=== PATIENT | female | born 1990 | race African-American/Black ===

== ENCOUNTER 2018-02-10 01:36 | Emergency (ER) | payer OTHER, MEDICAID ==
[~2018-02-10] VITALS: Ht 157.5 cm; Wt 49.9 kg
--- NOTE | 2018-02-10 01:38 | NUR ---
[facility] [employer] TO CHAIR [facility] EVALUATING PATIENT
--- NOTE | 2018-02-10 01:38 | NUR ---
YONNY ARAMBULA FOR PHYSICIAN ASSESSMENT BEFORE TRANSFER TO [facility]. PT HAS HX OF LUPS. PT DENIES N/V/D; SKIN IS PINK/WARM/DRY; AAOX4 WITH EVEN AND STEADY GAIT; LUNGS CLEAR BL; HR EVEN AND REGULAR; PT DENIES ANY FEVER, CP, SOB, OR COUGH AT THIS TIME; PATIENT STATES PAIN OF 0/10 AT THIS TIME; VSS; PATIENT POSITIONED FOR COMFORT; HOB ELEVATED; BEDRAILS UP X2; BED DOWN. ER MD MADE AWARE OF PT STATUS. CONTINUE TO MONITOR.
[2018-02-10 01:40] VITALS: BP 111/67
--- NOTE | 2018-02-10 01:44 | NUR ---
DR MELVIN AT CHAIRSIDE EVALUATING PT.
[2018-02-10 01:50] VITALS: BP 111/67
--- NOTE | 2018-02-10 01:50 | NUR ---
PATIENT [facility] [employer]. PATIENT EXAMINED BY DR. MELVIN. PATIENT MEDICALLY CLEARED AND RELEASED IN CUSTODY IN STABLE CONDITION. ORIGINAL PRE-BOOK FORM GIVEN TO [employer] .
== END 2018-02-10 01:50 ==
LOC: MED 01:36
DX: Z02.89 Encounter for other administrative examinations (principal)
CPT/HCPCS: 99283

== ENCOUNTER 2018-05-09 18:30 | Emergency (ER) | payer OTHER, MEDICAID ==
[~2018-05-09] VITALS: Ht 157.5 cm; Wt 48.5 kg
[2018-05-09 18:55] VITALS: BP 116/74
--- NOTE | 2018-05-09 19:03 | NUR ---
PT AMBULATED TO LOBBY WITH FRIEND.
--- NOTE | 2018-05-09 20:25 | NUR ---
PT WAS CALLED AT 1955, 2007, AND 2024 W/ NO ANSWER. PATIENT LEFT WITHOUT BEING SEEN BY DR. RAMIREZ. NO FURTHER CARE PROVIDED FOR PATIENT.
== END 2018-05-09 20:25 | disposition left against medical advice (07) ==
LOC: MED 18:30
DX: M25.512 Pain in left shoulder (principal); Z53.21 Procedure and treatment not carried out due to patient leaving prior to being seen by health care provider